=== PATIENT | female | born 1950 | race Caucasian/White ===

== ENCOUNTER 2020-07-27 20:07 | Emergency (ER) | payer MEDICARE ==
--- NOTE | 2020-07-27 20:54 | EDM.PDOC ---
ED HPI GENERAL MEDICAL PROBLEM - General Chief Complaint: Upper Extremity Injury/Pain Stated Complaint: LEFT WRIST INJURY Time Seen by Provider: 07/27/20 20:40 Source of Information: Reports: Patient History Limitations: Reports: No Limitations - History of Present Illness INITIAL COMMENTS - FREE TEXT/NARRATIVE: 62-year-old female tripped over the edge of a rug falling on her left wrist sustaining an injury 2 hours ago. No other injury. Quality: Reports: Sharp, Stabbing Worsens with: Reports: Movement Associated Symptoms: Reports: No Other Symptoms - Related Data Allergies Allergy/AdvReac Type Severity Reaction Status Date / Time No Known Allergies Allergy Verified 07/27/20 20:35 Home Meds: Home Meds Levothyroxine 1 tab PO DAILY 07/27/20 [History] SUMAtriptan [Imitrex] 1 tab PO Q2HR PRN 07/27/20 [History] Past Medical History Musculoskeletal History: Reports: Neck Pain, Chronic Neurological History: Reports: Migraines Endocrine/Metabolic History: Reports: Hypoparathyroidism Social & Family History - Tobacco Use Tobacco Use Status *Q: Never Tobacco User Review of Systems - Review of Systems Review Of Systems: See Below Constitutional: Denies: Fever Respiratory: Reports: No Symptoms Cardiovascular: Reports: No Symptoms Musculoskeletal: Reports: Other (Significant left wrist tenderness) Skin: Denies: Bruising Neurological: Denies: Paresthesia ED EXAM, GENERAL - Physical Exam Exam: See Below Exam Limited By: No Limitations General Appearance: Alert, Mild Distress Head: Atraumatic Neck: Non-Tender Respiratory/Chest: No Respiratory Distress Cardiovascular: Regular Rate, Rhythm Extremities: Other (Exam is otherwise limited to the left arm. The shoulder and elbow are nontender. She has slight swelling and extreme tenderness to palpation around the distal wrist and has significant pain with active flexion or extension of the wrist) Psychiatric: Normal Affect, Normal Mood Skin Exam: Warm, Dry Course - Vital Signs Last Recorded V/S: Last Vital Signs Temp 97.8 F 07/27/20 20:43 Pulse 83 07/27/20 20:43 Resp 16 07/27/20 20:43 BP 130/85 07/27/20 20:43 Pulse Ox 95 07/27/20 20:43 - Orders/Labs/Meds Orders: Active Orders 24 hr Category Date Time Status Consult to Orthopedic Clinic [CONS] Routine Cons 07/27/20 21:28 Active Wrist Comp Min 3V Lt [CR] Stat Exams 07/27/20 20:48 Taken DME for Discharge [COMM] Stat Oth 07/27/20 21:26 Ordered - Re-Assessments/Exams Free Text/Narrative Re-Assessment/Exam: 07/27/20 21:24 Left wrist x-ray was obtained that shows a somewhat displaced distal radius fracture. Ulnar styloid is fractured as well. An Ortho-Glass splint, 33 inches long was placed in a sugar tong configuration by myself and the wrist was immobilized. She was placed in a sling and will recheck with Dr. Cabrera next week. She was given 10 hydrocodone for extra pain control. Departure - Departure Time of Disposition: 21:46 Disposition: Home, Self-Care 01 Clinical Impression: Radius and ulna distal fracture Qualifiers: Encounter type: initial encounter Fracture type: closed Laterality: left Qualified Code(s): S52.502A - Unspecified fracture of the lower end of left radius, initial encounter for closed fracture - Discharge Information Instructions: Wrist Fracture Treated With Immobilization, [id number] Referrals: MALIK WHITAKER [Other] Forms: ED Department Discharge Care Plan Goals: Keep arm in sling until rechecked by Dr. Cabrera. Brief removal is okay to change clothes etc. You should be getting a call on Wednesday for an appointment time, call Wednesday morning if you have not heard from the department. Use hydrocodone for extra pain control if needed. Sepsis Event Note (ED) - Evaluation Sepsis Screening Result: No Definite Risk - Focused Exam Vital Signs: Vital Signs Temp Pulse Resp BP Pulse Ox 07/27/20 20:43 97.8 F 83 16 130/85 95 07/27/20 20:32 97.8 F 83 16 130/85 95 - My Orders Last 24 Hours: My Active Orders 07/27/20 20:48 Wrist Comp Min 3V Lt [CR] Stat 07/27/20 21:26 DME for Discharge [COMM] Stat 07/27/20 21:28 Consult to Orthopedic Clinic [CONS] Routine - Assessment/Plan Last 24 Hours: My Active Orders 07/27/20 20:48 Wrist Comp Min 3V Lt [CR] Stat 07/27/20 21:26 DME for Discharge [COMM] Stat 07/27/20 21:28 Consult to Orthopedic Clinic [CONS] Routine
--- NOTE | 2020-07-29 09:28 | CR ---
Wrist Comp Min 3V Lt CLINICAL HISTORY: Fall, pain FINDINGS: Patient has an impacted displaced fracture of the distal radius. There is also fracture through the base of the ulnar styloid. Impression: Impacted fracture distal radius and fracture of ulnar styloid
== END 2020-07-27 21:48 | disposition home or self-care (01) ==
LOC: JP.ED 20:07
DX: S52.502A Unspecified fracture of the lower end of left radius, initial encounter for closed fracture (principal); S52.612A Displaced fracture of left ulna styloid process, initial encounter for closed fracture; G43.909 Migraine, unspecified, not intractable, without status migrainosus; E20.9 Hypoparathyroidism, unspecified; Z68.27 Body mass index [BMI] 27.0-27.9, adult; Z79.899 Other long term (current) drug therapy; W01.0XXA Fall on same level from slipping, tripping and stumbling without subsequent striking against object, initial encounter
CPT/HCPCS: 29125; 73110-26-LT; 73110-LT; 99283-25

== ENCOUNTER 2020-07-31 08:30 | Day surgery (SDC) | payer MEDICARE ==
[~2020-07-31 08:30] MED LIST: Nozin Nasal Sanitizer NASBOTH ONE
[2020-07-31 09:30] LABS: CORONAVIRUS COVID-19 NAA NEGATIVE (NEGATIVE)
[2020-07-31] MEDS ORDERED: Lactated Ringers 1,000 ML IV SCH (09:30)
[2020-07-31] MEDS ORDERED: Bupivacaine 0.5% 30 ML SDV ONE (09:35)
[2020-07-31] MEDS ORDERED: ceFAZolin 1 GM in Sodium Chloride 0.9% 50 ML IV ONE (10:00)
[2020-07-31] MEDS ORDERED: ceFAZolin 1 GM in Premix Bag 1 BAG IV ONE (10:00)
[2020-07-31] MEDS ORDERED: Rocuronium 50 MG/5 ML Vial ONE (10:33)
[2020-07-31] MEDS ORDERED: Ondansetron 4 MG/2 ML SDV ONE (10:33)
[2020-07-31] MEDS ORDERED: Succinylcholine 200 MG/10 ML MDV ONE (10:33)
[2020-07-31] MEDS ORDERED: Dexamethasone 4 MG/ML SDV ONE (10:33)
[2020-07-31] MEDS ORDERED: fentaNYL 250 MCG/5 ML SDV ONE (10:33)
[2020-07-31] MEDS ORDERED: Propofol 200 MG/20 ML SDV ONE (10:33)
[2020-07-31] MEDS ORDERED: Neostigmine Methylsulfate 1 MG/ML 5 ML Syringe ONE (10:33)
[2020-07-31] MEDS ORDERED: Glycopyrrolate 0.2 MG/ML 5 ML MDV ONE (10:33)
[2020-07-31] MEDS ORDERED: Midazolam 1 MG/ML 2 ML SDV ONE (10:34)
[2020-07-31] MEDS ORDERED: traMADol 50 MG Tab PO PRN (12:48)
--- NOTE | 2020-08-21 23:31 | OR ---
DATE OF PROCEDURE: 07/31/2020 SURGEON: Felipe Cabrera MD PREOPERATIVE DIAGNOSES: 1. Colles fracture left wrist, displaced. 2. Ulnar styloid fracture, displaced. POSTOPERATIVE DIAGNOSES: 1. Colles fracture left wrist, displaced. 2. Ulnar styloid fracture, displaced. PROCEDURE: Open reduction and internal fixation, left distal radius using Synthes volar plate. INTERVENTIONAL CARDIOLOGIST: CHRIS Thomas. ANESTHESIA: [place] block with sedation. INDICATIONS: Teresa is a 70-year-old female who sustained a fall resulting in fracture of her left wrist. X-rays reveal significantly angulated Colles fracture with comminuted dorsal cortex and mildly displaced ulnar styloid fracture. Now presents for open reduction and internal fixation. Risks, benefits, and potential complications of the procedure were discussed including pros and cons of closed treatment versus open treatment. DESCRIPTION OF PROCEDURE: After adequate anesthesia was obtained, the left hand and wrist were prepped and draped in a sterile fashion. A longitudinal incision was made over the volar aspect of the wrist proximal to the wrist crease crossing the wrist crease at a 45 degrees angle for a short distance towards the radial styloid. Flexor retinaculum was partially divided and blunt dissection carried down to the radius. Pronator quadratus was stripped from the fracture site to allow visualization. Fracture was then reduced and position was confirmed using C-arm image intensifier. Synthes volar plate was selected and this was secured using cortical screws proximally and locking screws distally. Position of the plate and screw placement was confirmed using fluoroscopy. A good reduction was obtained and excellent purchase with all screws. Wound was then irrigated. Skin was closed with 2-0 Vicryl and a running 3-0 Monocryl. Steri-Strips were applied. The wrist was infiltrated with 0.5% Marcaine. Sterile dressing with a volar plaster splint was applied. The patient tolerated procedure very well. There were no complications. Taken from the operating room in stable condition. Felipe Cabrera MD /[id number]
== END 2020-07-31 15:17 | disposition home or self-care (01) ==
LOC: JP.SDS 08:30
PROVIDERS: ATTEND Specialist
DX: S52.532A Colles' fracture of left radius, initial encounter for closed fracture (principal); S52.612A Displaced fracture of left ulna styloid process, initial encounter for closed fracture; E20.9 Hypoparathyroidism, unspecified; Z01.812 Encounter for preprocedural laboratory examination; Z20.822 Contact with and (suspected) exposure to COVID-19; W19.XXXA Unspecified fall, initial encounter
CPT/HCPCS: 0241U; 25607; 36415; 76000; 80048; 85027; A9270; C1713; J0330; J0690; J2250; J2405; J2704; J2710; J3010; J3490; J7120; J1100